=== PATIENT | male | born 1980 ===

== ENCOUNTER 2016-07-29 06:26 | Day surgery (SDC) | payer BC ==
[2016-07-29] VITALS (8 sets, daily range): BP systolic 124–138; BP diastolic 78–94
[~2016-07-29] VITALS: Ht 172.7 cm; Wt 87.1 kg
[~2016-07-29 06:26] MED LIST: MULTIVITAMINS1 EAC2 ORAL
[2016-07-29] MEDS ORDERED: LR 1000ml 1,000 ML IVLG SCH (07:00)
[2016-07-29] MEDS ORDERED: Propofol 10mg/ml 20ml IV ONE (08:00)
[2016-07-29] MEDS ORDERED: Lidocaine 1% MPF 10mg/ml 5ml ONE (08:00)
[2016-07-29] MEDS ORDERED: LR 1000ml ONE (08:00)
--- NOTE | 2016-07-29 08:11 | Anethesia Preoperative Eval ---
Anesthesia Pre-op PMH/ROS General Date of Evaluation: July 29, 2016 Time of Evaluation: 08:09 Anesthesiologist: alysia ASA Score: ASA 2 Mallampati Score Class I : Soft palate, uvula, fauces, pillars visible Class II: Soft palate, uvula, fauces visible Class III: Soft palate, base of uvula visible Class IV: Only hard plate visible Mallampati Classification: Class II Surgeon: cristy Diagnosis: blood in stool Surgical Procedure: colonoscopy Anesthesia History: none Family History: no anesthesia problems Allergies: Coded Allergies: No Known Allergies (Unverified , 07/28/16) Medications: see eMAR Past Medical History Cardiovascular: Reports: HTN, other - hypercholestrolemia Gastrointestinal/Genitourinary: Reports: other - blood in stool Anesthesia Pre-op Phys. Exam Physician Exam Last Vital Signs Date Time Temp Pulse Resp B/P Pulse Ox O2 Delivery O2 Flow Rate FiO2 07/29/16 06:58 97.6 74 20 138/86 99 Room Air Constitutional: NAD Neurologic: CN 2-12 intact Cardiovascular: RRR Respiratory: CTA Gastrointestinal: S/NT/ND Airway Exam Mallampati Score: Class II Neck: supple ROM: full Teeth: intact Anesthesia Pre-op A/P Risk Assessment & Plan Plan: colonoscopy Status Change Before Surgery: No Pre-Antibiotics Drug: none NABIL GUARDADO July 29, 2016 08:11
--- NOTE | 2016-07-29 08:18 | Pre-Procedure Note/Attestation ---
Pre-Procedure Note/Attestation Complete Prior to Procedure Planned Procedure: not applicable Procedure Narrative: colon Indications for Procedure Pre-Operative Diagnosis: BRBPR Attestation I attest that I discussed the nature of the procedure; its benefits; risks and complications; and alternatives (and the risks and benefits of such alternatives ), prior to the procedure, with the patient (or the patient's legal field support representative). I attest that, if there was a reasonable possibility of needing a blood transfusion, the patient (or the patient's legal field support representative) was given the [facility] standardized written summary, pursuant to the [place] Blood Safety Act ([place] Health and Safety Code # 1645, as amended). I attest that I re-evaluated the patient just prior to the surgery and that there has been no change in the patient's H&P, except as documented below: MONSERRAT NAVA July 29, 2016 08:18
--- NOTE | 2016-07-29 08:18 | Short Stay Surgery H&P ---
History of Present Illness History of Present Illness Chief Complaint see attached H&P HPI Jeffery Nova Miller is a 35 year old male who was admitted on for Blood In Stool Patient History Allergies: Coded Allergies: No Known Allergies (Unverified , 07/28/16) PAST MEDICAL HISTORY: Past Surgeries: Social History: Medication History Scheduled Multivitamins* (Multivitamins*), 1 TAB ORAL DAILY, (Reported) Physical Exam Vital Signs Last Vital Signs Date Time Temp Pulse Resp B/P Pulse Ox O2 Delivery O2 Flow Rate FiO2 07/29/16 06:58 97.6 74 20 138/86 99 Room Air Plan Attestation Are the patient's medical conditions optimized for surgery? MONSERRAT NAVA July 29, 2016 08:18
--- NOTE | 2016-07-29 08:50 | Immediate Post-Op Evaluation ---
Immediate Post-Op Evalulation Immediate Post-Op Evalulation Procedure: colonocopy Date of Evaluation: July 29, 2016 Time of Evaluation: 09:08 IV Fluids: lr 500ml Blood Products: none Estimated Blood Loss: none Urinary Output: na Blood Pressure Systolic: 130 Blood Pressure Diastolic: 92 Pulse Rate: 59 Respiratory Rate: 18 O2 Sat by Pulse Oximetry: 100 Temperature (Fahrenheit): 97.0 Pain Score (1-10): 0 Nausea: No Vomiting: No Complications none Patient Status: awake, reacts, patent Hydration Status: adequate Drug: none NABIL GUARDADO July 29, 2016 08:50
--- NOTE | 2016-07-29 08:55 | Endoscopy Procedure Note ---
Endoscopy Procedure Note Indication for Procedure: BRB Procedures Performed: colonoscopy Operative Findings/Diagnosis: BRB Specimen: yes Pt Tolerated Procedure Well: Yes Estimated Blood Loss: none Anesthesiologist: see report Anesthesia: moderate sedation Medication Given: see anesthesia record Implant(s) used?: No 50 yrs or older w/o bx or poly: Not Applicable 10yrs. F/U not recommended: No If not recommended, why?: 10 yrs. F/U needed: No 18 years or older w/prev. colo: No <3yrs. since last colonoscopy: No Med reason:<3 yrs.: System Reason:<3 yrs.: Last colonoscopy >= to 3yrs: Yes MONSERRAT NAVA July 29, 2016 08:55
--- NOTE | 2016-07-29 08:57 | Brief Operative Note ---
Immediate Post Operative Note Operative Note Chief Complaint: BRB Pre-op Diagnosis: BRBPR Procedure: colon bx Post-op Diagnosis: mild rhoids, rectal polyp Surgeon: cristy Anesthesiologist: fernando Anesthesia: MAC Specimen: yes Complications: none Condition: stable Estimated Blood Loss: none Drains: none Implant(s) used?: No MONSERRAT NAVA July 29, 2016 08:57
--- NOTE | 2016-07-29 08:58 | Brief Operative Note ---
Immediate Post Operative Note Operative Note Chief Complaint: BRB Pre-op Diagnosis: BRBPR Procedure: colon bx Post-op Diagnosis: mild rhoids, rectal polyp Surgeon: jonathan Anesthesiologist: Main Anesthesia: MAC Specimen: yes Complications: none Condition: stable Estimated Blood Loss: none Drains: none Implant(s) used?: No MONSERRAT NAVA July 29, 2016 08:58
--- NOTE | 2016-07-29 09:11 | 48 Hour Post Anesthesia Eval ---
Post Anesthesia Evaluation Procedure: colonocopy Date of Evaluation: July 29, 2016 Time of Evaluation: 09:09 Blood Pressure Systolic: 136 0: 89 Pulse Rate: 58 Respiratory Rate: 16 Temperature (Fahrenheit): 97.0 O2 Sat by Pulse Oximetry: 100 Airway: patent Nausea: No Vomiting: No Pain Intensity: 0 Hydration Status: adequate Cardiopulmonary Status: stable Post-Anesthesia Complications: none Follow-up care needed: N/A NABIL GUARDADO July 29, 2016 09:11
--- NOTE | 2016-07-29 17:46 | Operative Note - Dictated ---
DATE OF OPERATION: 07/29/2016 PROCEDURE PERFORMED: Colonoscopy with biopsy. SURGEON: Jihan Knott M.D. ANESTHESIA: Please see the separate anesthesiologist notes for details. PRE-ENDOSCOPIC DIAGNOSIS: Hematochezia. POST-ENDOSCOPIC DIAGNOSES: 1. Mild internal hemorrhoids. 2. Diminutive white colored polyp in the rectum status post biopsy removal. 3. Status post random biopsy of the right colon and left colon. 4. Normal terminal ileum. DESCRIPTION OF PROCEDURE: The procedure, its risks, indications, alternatives, and possible complications including, but not limited to, bleeding, infection, perforation, , and anesthesia complications were explained to the patient and informed consent was obtained. The patient was then sedated in the left lateral decubitus position. Rectal exam was done. The colonoscope was then introduced into the rectum and advanced to the terminal ileum. The colonoscope was then gradually withdrawn. The mucosa examined carefully. Findings and biopsies are listed above. The colonoscope was removed. The patient was sent to recovery in good condition. COMPLICATIONS: None. RECOMMENDATIONS: 1. Followup biopsy results. 2. Resume oral diet. 3. Outpatient followup. Thank you for asking me to participate in the care of this patient. Jihan Knott M.D. DR: Soledad JOB#: [id number] CC: Hair Arias M.D.; Fax#: [phone]
== END 2016-07-29 10:05 | disposition home or self-care (01) ==
LOC: GAS 06:26
DX: K92.1 Melena (principal); R14.0 Abdominal distension (gaseous); K64.8 Other hemorrhoids; K62.1 Rectal polyp; I10 Essential (primary) hypertension; E78.00 Pure hypercholesterolemia, unspecified; E66.3 Overweight; Z68.25 Body mass index [BMI] 25.0-25.9, adult
CPT/HCPCS: 45380; J2704; J7120; 94003; 94150